=== PATIENT | female | born 1935 | race Two or more races ===

== ENCOUNTER 2024-03-03 10:31 | Emergency (ER) | payer OTHER ==
[~2024-03-03] VITALS: Ht 162.6 cm; Wt 50.0 kg
[2024-03-03] MEDS: SODIUM CHLORIDE 0.9% 1,000 ML IV ONE (10:55)
[2024-03-03] MEDS: ACETAMINOPHEN 1000 MG/ISO-OSM 100 ML IV ONE (10:55)
[2024-03-03 10:59] LABS: EOSINOPHILS % (AUTO) 3.8 % (1.0-6.0); HEMATOCRIT 38.4 % (36-46); HEMOGLOBIN 12.4 g/dL (12.0-16.0); LYMPHOCYTES # (AUTO) 5.9 K/uL (1.0-4.8); LYMPHOCYTES % (AUTO) 50.8 % (22.0-44.0); MEAN CORPUSCULAR HEMOGLOBIN 29.2 pg (26.0-34.0); MEAN CORPUSCULAR HGB CONC 32.3 G/dL (31.0-37.0); MEAN CORPUSCULAR VOLUME 90 fL (80-100); MONOCYTES # (AUTO) 0.7 K/uL (0.1-1.0); MONOCYTES % (AUTO) 5.9 % (2.0-9.0); NEUTROPHILS # (AUTO) 4.5 K/uL (1.8-7.7); NEUTROPHILS % (AUTO) 38.5 % (40.0-70.0); PLATELET COUNT (AUTO) 245 K/uL (150-450); RED BLOOD CELL COUNT(AUTO) 4.25 MIL/uL (4.00-5.20); RED CELL DISTRIBUTION WIDTH 14.5 % (11.5-14.5); WHITE BLOOD COUNT (AUTO) 11.6 K/uL (4.5-11.0)
[2024-03-03 11:01] LABS: RBC MORPHOLOGY COMMENT NORMAL RBC MORPH
[2024-03-03 11:26] VITALS: TEMP 97.6
[2024-03-03 11:28] LABS: CALCIUM, TOTAL 9.5 mg/dL (8.8-10.5); CREATININE 2.16 mg/dL (0.60-1.30)
[2024-03-03 11:32] LABS: POTASSIUM 2.9 mmol/L (3.5-5.1)
[2024-03-03] MEDS: POTASSIUM CHL 20 MEQ/0.9% NS 1,000 ML IV ONE (11:51)
[2024-03-03 12:05] LABS: TROPONIN I-HIGH SENSITIVITY 28 ng/L (<51)
[2024-03-03 13:21] VITALS: BP 138/82; PULSE 84; RESP 21
== END 2024-03-03 14:02 | disposition short-term general hospital (02) ==
LOC: EMS 10:31 → EDBD 10:31 → EMS 14:02
DX: T63.441A Toxic effect of venom of bees, accidental (unintentional), initial encounter (principal); N17.9 Acute kidney failure, unspecified; E87.6 Hypokalemia; Z79.899 Other long term (current) drug therapy
CPT/HCPCS: 99285; 96365; 96367; 80048; 82550; 84484; 85025; 36415; 93005; J7030; J3480; J0131; 99284

== ENCOUNTER 2024-08-20 09:17 | Emergency (ER) | payer OTHER ==
[~2024-08-20] VITALS: Ht 147.3 cm; Wt 47.7 kg
[2024-08-20 09:36] LABS: BASOPHILS % (AUTO) 0.7 % (0.0-2.0); EOSINOPHILS % (AUTO) 1.4 % (1.0-6.0); HEMATOCRIT 37.4 % (36-46); HEMOGLOBIN 12.2 g/dL (12.0-16.0); LYMPHOCYTES # (AUTO) 1.4 K/uL (1.0-4.8); LYMPHOCYTES % (AUTO) 19.9 % (22.0-44.0); MEAN CORPUSCULAR HEMOGLOBIN 29.1 pg (26.0-34.0); MEAN CORPUSCULAR HGB CONC 32.7 G/dL (31.0-37.0); MEAN CORPUSCULAR VOLUME 89 fL (80-100); MONOCYTES # (AUTO) 0.6 K/uL (0.1-1.0); MONOCYTES % (AUTO) 9.1 % (2.0-9.0); NEUTROPHILS # (AUTO) 4.8 K/uL (1.8-7.7); NEUTROPHILS % (AUTO) 68.9 % (40.0-70.0); PLATELET COUNT (AUTO) 293 K/uL (150-450); RED BLOOD CELL COUNT(AUTO) 4.21 MIL/uL (4.00-5.20); RED CELL DISTRIBUTION WIDTH 16.9 % (11.5-14.5)
[2024-08-20 09:43] LABS: CALCIUM, TOTAL 9.3 mg/dL (8.8-10.5); CREATININE 2.04 mg/dL (0.60-1.30); POTASSIUM 3.3 mmol/L (3.5-5.1)
[2024-08-20 09:49] LABS: ALBUMIN 2.8 g/dL (3.4-5.0); BILIRUBIN,TOTAL 0.5 mg/dL (0.1-1.0); TOTAL PROTEIN, SERUM 7.9 g/dL (6.4-8.2)
[2024-08-20 09:51] LABS: TROPONIN I-HIGH SENSITIVITY 27 ng/L (<51)
[2024-08-20 09:54] LABS: PROTHROMBIN TIME 10.3 SEC (9.4-11.6)
[2024-08-20] MEDS: SODIUM CHLORIDE 0.9% 1,000 ML IV ONE (10:34)
[2024-08-20 11:00] VITALS: BP 126/90; PULSE 82; RESP 18; TEMP 98.1; O2SAT 98
== END 2024-08-20 11:05 | disposition short-term general hospital (02) ==
LOC: EMS 09:22
DX: I63.9 Cerebral infarction, unspecified (principal); I63.40 Cerebral infarction due to embolism of unspecified cerebral artery; I48.91 Unspecified atrial fibrillation; Z86.73 Personal history of transient ischemic attack (TIA), and cerebral infarction without residual deficits
CPT/HCPCS: 70496; 70498; 71045; 80053; 82948; 83880; 84484; 85025; 85610; 85730; 86850; 86870; 86900; 86901; 93005; 96360; 99291; 36415-L1; 36415-TC; 70450; 70450-TC